=== PATIENT | male | born 1975 | race Caucasian/White ===

== ENCOUNTER 2017-03-10 08:45 | Inpatient (IN) | payer OTHER ==
[~2017-03-10] VITALS: Ht 182.9 cm; Wt 118.4 kg
--- NOTE | ~2017-03-10 | EKG ---
[address] [address] ELECTROCARDIOGRAM REPORT Name: HERB DAVALOS Room #: 441-P ADM IN M.R.#: [id number] Admission: 03/10/17 Attend Phys: Marcial Arredondo MD Discharge: Date of : 79 Report #: [id number] THIS REPORT FOR: //name// [facility] Test Date: 2017-03-10 Test Time: 14:22:05 Pat Name: HERB DAVALOS Department: Room: [facility] Gender: M Quality System Manager: Nicole HEATH : 1975 Requested By: Rocael Wiggins Order Number: [id number] MD: Fernandez Grullon Measurements Intervals [place] Rate: 83 P: 60 KS: 193 QRS: 50 QRSD: 98 T: 38 QT: 395 QTc: 465 Interpretive Statements Sinus rhythm No significant abnormality No previous ECG available for comparison Electronically Signed On 03-11-2017 8:31:08 CDT by Fernandez Grullon [email or web address] <ELECTRONICALLY SIGNED> By: Fernandez Grullon MD, [facility] 03/11/17 0831 1422 1422 Fernandez Grullon MD, FACC /EPI
--- NOTE | ~2017-03-10 | EKG ---
[address] [address] ELECTROCARDIOGRAM REPORT Name: HERB DAVALOS Room #: 239-P ADM IN M.R.#: [id number] Admission: 03/10/17 Attend Phys: Marcial Arredondo MD Discharge: Date of : 79 Report #: [id number] THIS REPORT FOR: //name// [facility] Test Date: 2017-03-15 Test Time: 09:53:10 Pat Name: HERB DAVALOS Department: Room: 239 P Gender: M Color Printer Operator: REDD : 1975 Requested By: Marcial Arredondo Order Number: [id number] MD: Fernandez Grullon Measurements Intervals [place] Rate: 135 P: 63 NM: 147 QRS: 33 QRSD: 88 T: 197 QT: 280 QTc: 420 Interpretive Statements Sinus tachycardia Probable left atrial enlargement Borderline repolarization abnormality Compared to ECG 03/10/2017 14:22:05 Sinus rhythm no longer present Electronically Signed On 03-16-2017 9:24:27 CDT by Fernandez Grullon [email or web address] <ELECTRONICALLY SIGNED> By: Fernandez Grullon MD, [facility] 03/16/17 0924 0953 Fernandez Grullon MD, [facility] /EPI
[2017-03-10 08:50] VITALS: BP 134/94
[2017-03-10] MEDS ORDERED: PRILOSEC 10MG C10 MG PO (09:02)
[2017-03-10] MEDS ORDERED: METFORMIN HCL500 MG PO (09:02)
[2017-03-10] MEDS ORDERED: LIPITOR10 MG PO (09:03)
[2017-03-10] MEDS ORDERED: FENOFIBRATE40 MG PO (09:03)
[2017-03-10] MEDS ORDERED: LISINOPRIL5 MG PO (09:04)
[2017-03-10 09:15] LABS: ABSOLUTE NEUTROPHILS 6.4 thou/uL (1.4-8.2); BASOPHILS 0.9 % (0.0-2.0); EOSINOPHILS 1.8 % (0.0-3.0); HEMATOCRIT 43.7 % (42.0-52.0); HEMOGLOBIN 18.2 gm/dL (14.0-18.0); MCHC 41.6 g/dL (28.0-37.0); MCV 89.1 fL (80.0-100.0); MONOCYTES 6.3 % (1.0-8.0); PLATELET COUNT 261 thou/uL (150-400); RBC 4.91 mil/uL (4.50-6.00); RDW 13.9 % (10.5-14.5); WBC 10.2 thou/uL (4.0-11.0)
[2017-03-10 09:24] LABS: POTASSIUM 3.5 mmol/L (3.5-5.1)
[2017-03-10 09:28] LABS: MANUAL DIFF NO
[2017-03-10 10:31] VITALS: BP 126/91
[2017-03-10 10:52] VITALS: BP 120/77
[2017-03-10 11:13] LABS: CREATININE 0.7 mg/dL (0.7-1.3)
[2017-03-10 11:14] LABS: ALBUMIN 4.2 g/dL (3.4-5.0); CALCIUM 8.3 mg/dL (8.5-10.1); TOTAL BILIRUBIN 0.5 mg/dL (<0.1-1.0)
[2017-03-10 11:38] LABS: DIRECT BILIRUBIN 0.1 mg/dL (<0.1-0.3)
[2017-03-10 12:31] LABS: URINE BILIRUBIN NEGATIVE (Negative); URINE BLOOD NEGATIVE (Negative); URINE COLOR YELLOW; URINE GLUCOSE-RANDOM* 3+ (Negative); URINE KETONES 1+ (Negative); URINE NITRITE NEGATIVE (Negative); URINE PROTEIN (DIPSTICK) NEGATIVE (Negative); URINE UROBILINOGEN 0.2 E.U./dl (0.2-1.0)
[2017-03-10 16:00] VITALS: BP 98/72
[2017-03-10 19:25] VITALS: BP 127/88
[2017-03-10 23:40] VITALS: BP 105/68
[2017-03-11 03:48] VITALS: BP 131/76
[2017-03-11 06:20] LABS: HEMATOCRIT 52.5 % (42.0-52.0); HEMOGLOBIN 18.9 gm/dL (14.0-18.0); MCH 32.3 pg (26.0-34.0); MCHC 35.9 g/dL (28.0-37.0); MCV 89.8 fL (80.0-100.0); RBC 5.85 mil/uL (4.50-6.00); RDW 14.5 % (10.5-14.5)
[2017-03-11 06:37] LABS: POTASSIUM 5.1 mmol/L (3.5-5.1)
[2017-03-11 08:00] VITALS: BP 112/90
[2017-03-11 08:32] LABS: CREATININE 1.4 mg/dL (0.7-1.3)
[2017-03-11 08:34] LABS: CALCIUM 5.3 mg/dL (8.5-10.1)
[2017-03-11 11:00] LABS: CHOLESTEROL 381 mg/dL (<200); HDL CHOLESTEROL 22 mg/dL (>40); TC:HDL 17.3 Ratio (Not establshd)
[2017-03-11 11:43] LABS: TRIGLYCERIDE 3389 mg/dL (<150)
[2017-03-11 11:44] LABS: VLDL 678 mg/dL (<40)
[2017-03-11 14:55] VITALS: BP 91/39
[2017-03-11 15:42] VITALS: BP 91/53
[2017-03-11 19:33] VITALS: BP 96/53
[2017-03-11 23:14] LABS: HEMATOCRIT 43.9 % (42.0-52.0); MCH 31.3 pg (26.0-34.0); MCHC 34.7 g/dL (28.0-37.0); RBC 4.87 mil/uL (4.50-6.00); RDW 14.4 % (10.5-14.5); WBC 7.6 thou/uL (4.0-11.0)
[2017-03-11 23:17] LABS: HEMOGLOBIN 15.2 gm/dL (14.0-18.0)
[2017-03-11 23:36] LABS: ABG SAMPLE TYPE ARTERIAL; BE(vivo) -3.5 mmol/L (-2 to +3); HCO3 19.9 mmol/L (22.0-26.0); LACTATE 1.36 mmol/L (0.5-2.0); O2(CT) 19.4 mL/dL (15.0-23.0); O2Hb 90.1 % (92.0-98.0); PCO2 31.8 mmHg (35.0-45.0); PO2 60.2 mmHg (80.0-100.0); pH 7.414 (7.360-7.450); sO2 91.7 % (92.0-98.0); tCO2 20.9 mmol/L (24.0-30.0)
[2017-03-11 23:37] LABS: STICK SITE R.BRACHIAL
[2017-03-11 23:41] LABS: CHLORIDE 97 mmol/L (98-107); POTASSIUM 4.7 mmol/L (3.5-5.1); TRIGLYCERIDE 1921 mg/dL (<150)
[2017-03-11 23:42] LABS: SODIUM 131 mmol/L (136-145)
[2017-03-12] VITALS (39 sets, daily range): BP systolic 118–161; BP diastolic 67–125
[2017-03-12 00:38] LABS: ANION GAP 13 mmol/L (7-16); BUN 29 mg/dL (7-18); CO2 21 mmol/L (21-32); CREATININE 1.1 mg/dL (0.7-1.3); GLUCOSE 265 mg/dL (74-106)
[2017-03-12 00:39] LABS: CALCIUM < 5.0 mg/dL (8.5-10.1); MAGNESIUM 1.2 mg/dL (1.8-2.4); PHOSPHORUS 2.5 mg/dL (2.5-4.9)
[2017-03-12 06:33] LABS: HEMATOCRIT 42.8 % (42.0-52.0); HEMOGLOBIN 14.9 gm/dL (14.0-18.0); MCH 31.4 pg (26.0-34.0); MCHC 34.8 g/dL (28.0-37.0); MCV 90.2 fL (80.0-100.0); RBC 4.74 mil/uL (4.50-6.00); RDW 14.4 % (10.5-14.5); WBC 8.1 thou/uL (4.0-11.0)
[2017-03-12 06:39] LABS: CHLORIDE 97 mmol/L (98-107); SODIUM 131 mmol/L (136-145)
[2017-03-12 06:41] LABS: POTASSIUM 3.7 mmol/L (3.5-5.1)
[2017-03-12 07:55] LABS: ANION GAP 12 mmol/L (7-16); BUN 26 mg/dL (7-18); CO2 22 mmol/L (21-32); GLUCOSE 240 mg/dL (74-106)
[2017-03-12 08:02] LABS: CALCIUM < 5.0 mg/dL (8.5-10.1)
[2017-03-13] VITALS (24 sets, daily range): BP systolic 99–178; BP diastolic 70–108
[2017-03-13 00:06] LABS: GLYCOHEMOGLOBIN (HGB A1C) 10.7 % (4.8-5.6)
[2017-03-13 04:57] LABS: HEMATOCRIT 42.9 % (42.0-52.0); HEMOGLOBIN 14.4 gm/dL (14.0-18.0); MCH 30.4 pg (26.0-34.0); MCHC 33.6 g/dL (28.0-37.0); MCV 90.6 fL (80.0-100.0); RBC 4.73 mil/uL (4.50-6.00); RDW 14.3 % (10.5-14.5); WBC 8.6 thou/uL (4.0-11.0)
[2017-03-13 05:09] LABS: APTT 41.8 Seconds (24.5-32.8); INR 1.1; PROTIME 10.9 Seconds (9.3-11.4)
[2017-03-13 05:12] LABS: CREATININE 0.8 mg/dL (0.7-1.3); MAGNESIUM 1.9 mg/dL (1.8-2.4); POTASSIUM 3.8 mmol/L (3.5-5.1)
[2017-03-13 05:14] LABS: FIBRINOGEN 514.8 mg/dL (210-360)
[2017-03-13 05:32] LABS: CALCIUM 5.8 mg/dL (8.5-10.1)
[2017-03-13 10:47] LABS: ABG SAMPLE TYPE ARTERIAL; BE(vivo) -10.8 mmol/L (-2 to +3); HCO3 13.6 mmol/L (22.0-26.0); LACTATE 1.02 mmol/L (0.5-2.0); O2(CT) 18.4 mL/dL (15.0-23.0); O2Hb 93.4 % (92.0-98.0); PCO2 27.2 mmHg (35.0-45.0); PO2 74.7 mmHg (80.0-100.0); STICK SITE L.RADIAL; pH 7.318 (7.360-7.450); sO2 94.2 % (92.0-98.0); tCO2 14.5 mmol/L (24.0-30.0)
[2017-03-14] VITALS (22 sets, daily range): BP systolic 110–157; BP diastolic 63–107
[2017-03-14 04:58] LABS: HEMATOCRIT 36.9 % (42.0-52.0); HEMOGLOBIN 12.5 gm/dL (14.0-18.0); MCH 30.5 pg (26.0-34.0); MCHC 33.9 g/dL (28.0-37.0); MCV 89.8 fL (80.0-100.0); RBC 4.11 mil/uL (4.50-6.00); RDW 14.4 % (10.5-14.5); WBC 5.7 thou/uL (4.0-11.0)
[2017-03-14 05:25] LABS: ALBUMIN 2.6 g/dL (3.4-5.0); CALCIUM 8.1 mg/dL (8.5-10.1); CREATININE 0.6 mg/dL (0.7-1.3); POTASSIUM 3.4 mmol/L (3.5-5.1); TOTAL BILIRUBIN 1.3 mg/dL (<0.1-1.0); TOTAL PROTEIN 6.1 g/dL (6.4-8.2)
[2017-03-15] VITALS (19 sets, daily range): BP systolic 104–147; BP diastolic 63–105
[2017-03-15 04:48] LABS: HEMOGLOBIN 12.8 gm/dL (14.0-18.0); MCHC 34.7 g/dL (28.0-37.0); MCV 89.3 fL (80.0-100.0); RBC 4.14 mil/uL (4.50-6.00); RDW 14.5 % (10.5-14.5); WBC 7.4 thou/uL (4.0-11.0)
[2017-03-15 05:06] LABS: ALBUMIN 2.4 g/dL (3.4-5.0); CREATININE 0.6 mg/dL (0.7-1.3); PHOSPHORUS 3.2 mg/dL (2.5-4.9); POTASSIUM 3.5 mmol/L (3.5-5.1)
[2017-03-16] VITALS (11 sets, daily range): BP systolic 114–146; BP diastolic 80–98
[2017-03-16 05:07] LABS: HEMATOCRIT 35.4 % (42.0-52.0); MCH 30.5 pg (26.0-34.0); MCHC 33.9 g/dL (28.0-37.0); MCV 89.9 fL (80.0-100.0); RBC 3.94 mil/uL (4.50-6.00); RDW 14.3 % (10.5-14.5); WBC 8.5 thou/uL (4.0-11.0)
[2017-03-16 05:16] LABS: CALCIUM 8.3 mg/dL (8.5-10.1); CREATININE 0.7 mg/dL (0.7-1.3)
[2017-03-16 05:22] LABS: POTASSIUM 2.7 mmol/L (3.5-5.1)
[2017-03-17 04:20] VITALS: BP 124/78
[2017-03-17 05:47] LABS: HEMOGLOBIN 11.4 gm/dL (14.0-18.0); MCH 30.5 pg (26.0-34.0); MCHC 34.4 g/dL (28.0-37.0); MCV 88.5 fL (80.0-100.0); RBC 3.73 mil/uL (4.50-6.00); RDW 14.2 % (10.5-14.5); WBC 11.1 thou/uL (4.0-11.0)
[2017-03-17 05:56] LABS: CALCIUM 8.1 mg/dL (8.5-10.1); CREATININE 0.7 mg/dL (0.7-1.3); POTASSIUM 3.2 mmol/L (3.5-5.1)
[2017-03-17 07:55] VITALS: BP 130/85
[2017-03-17] MEDS ORDERED: ATORVASTATIN CA40 MG PO (08:49)
[2017-03-17 11:14] VITALS: BP 130/85
[2017-03-17 11:30] VITALS: BP 130/85
== END 2017-03-17 11:32 | disposition home or self-care (01) | DRG 438 ==
LOC: ER 08:45 → EROBS 10:02 → 4S 10:02 → ICU 03-12 12:02 → 3N 03-16 13:41
PROVIDERS: Hospitalist; Internal Medicine Gastroenterology; Nurse Practitioner; Nurse Practitioner Adult Health
PROC: 02HV33Z Insertion of Infusion Device into Superior Vena Cava, Percutaneous Approach (ICD-10-PCS; principal; 2017-03-12)
DX: K85.90 Acute pancreatitis without necrosis or infection, unspecified (principal); E13.10 Other specified diabetes mellitus with ketoacidosis without coma; E43 Unspecified severe protein-calorie malnutrition; N17.9 Acute kidney failure, unspecified; E87.2 Acidosis; E87.1 Hypo-osmolality and hyponatremia; I10 Essential (primary) hypertension; E78.5 Hyperlipidemia, unspecified; F17.210 Nicotine dependence, cigarettes, uncomplicated; E66.9 Obesity, unspecified; E78.1 Pure hyperglyceridemia; E78.00 Pure hypercholesterolemia, unspecified; K21.9 Gastro-esophageal reflux disease without esophagitis; E83.51 Hypocalcemia; E83.42 Hypomagnesemia; F41.9 Anxiety disorder, unspecified; E87.6 Hypokalemia; R41.0 Disorientation, unspecified; R00.0 Tachycardia, unspecified; Z79.84 Long term (current) use of oral hypoglycemic drugs; Z79.899 Other long term (current) drug therapy; Z68.35 Body mass index [BMI] 35.0-35.9, adult; Z91.14 Patient's other noncompliance with medication regimen; Z80.0 Family history of malignant neoplasm of digestive organs
CPT/HCPCS: 10078; 10096; 10195; 27000; 52295